=== PATIENT | male | born 1980 | race American Indian/Alaskan Native ===

== ENCOUNTER 2016-05-01 18:19 | Emergency (ER) | payer OTHER ==
[2016-05-01 18:37] VITALS: BP 149/89
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
== END 2016-05-01 21:24 | disposition home or self-care (01) ==
LOC: ED 18:19
DX: M54.2 Cervicalgia (principal); R51 Headache; I82.409 Acute embolism and thrombosis of unspecified deep veins of unspecified lower extremity; V89.2XXA Person injured in unspecified motor-vehicle accident, traffic, initial encounter; Y93.9 Activity, unspecified; Y99.9 Unspecified external cause status; Y92.410 Unspecified street and highway as the place of occurrence of the external cause
CPT/HCPCS: 99282

== ENCOUNTER 2016-11-13 06:40 | Day surgery (SDC) | payer OTHER ==
[~2016-11-13 06:40] MED LIST: ANCEF/STERILE WATER 2 GM/20 ML 2 GM/20 ML SYRINGE IV NR; NACL 0.9% 1000 ML 1,000 ML IV SCH
[2016-11-13 07:27] LABS: Basophils % (Auto) 1.2 % (0.0-1.8); Eosinophils % (Auto) 1.8 % (0.0-4.3); Hematocrit 41.3 % (35.5-45.6); Hemoglobin 13.5 gm/dl (11.8-15.2); Mean Corpuscular HGB Conc 33 % (32-34); Mean Corpuscular Hemoglobin 28 pg (28-32); Mean Corpuscular Volume 86 fl (84-94); Platelet Count 275 K/mm3 (140-440); Red Blood Count 4.79 M/mm3 (3.65-5.03); Red Cell Distribution Width 14.3 % (13.2-15.2); White Blood Count 6.1 K/mm3 (4.5-11.0)
[2016-11-13 07:36] LABS: Anion Gap 17 mmol/L; Blood Urea Nitrogen 12 mg/dL (9-20); Calcium 8.7 mg/dL (8.4-10.2); Carbon Dioxide 24 mmol/L (22-30); Chloride 102.6 mmol/L (98-107); Glucose 95 mg/dL (75-100); Potassium 4.2 mmol/L (3.6-5.0); Sodium 139 mmol/L (137-145)
[2016-11-13 07:37] LABS: INR 0.94 (0.87-1.13)
[2016-11-13 07:38] LABS: Partial Thromboplastin Time 27.7 Sec. (24.2-36.6)
[2016-11-13] MEDS ORDERED: HEPARIN/NS 5000 UNIT/500ML(CATH LAB) 500 ML IR ONE ×2 (08:16→08:40)
[2016-11-13] MEDS ORDERED: SUBLIMAZE ONE (08:16)
[2016-11-13] MEDS ORDERED: HEPARIN 10,000 UNITS/10 ML ONE (08:16)
[2016-11-13] MEDS ORDERED: ANCEF/STERILE WATER 2 GM/20 ML 2 GM/20 ML SYRINGE IV ONE (08:17)
[2016-11-13] MEDS: VERSED ONE ×2 (08:28→08:37)
[2016-11-13] MEDS: XYLOCAINE 2% INFILTRATI ONE ×2 (08:28→08:36)
[2016-11-13] MEDS: SUBLIMAZE ONE ×3 (08:28→10:15)
--- NOTE | 2016-11-13 10:25 | Short Stay Summary ---
Short Stay Documentation Date of service: 11/13/16 - History Principal diagnosis: Venous insufficiency H&P: obtained from office - Allergies and Medications Current Medications: Allergies No Known Allergies Allergy (Verified 05/01/16 18:39) Home Medications Medication Instructions Recorded Confirmed Last Taken Type Naproxen [Naprosyn] 500 mg PO BID 11/13/16 11/13/16 11/12/16 History Active Medications Cefazolin Sodium (Ancef/Sterile Water 2 Gm/20 Ml) 2 gm in 20 mls @ 80 mls/hr IV PREOP NR PRN Reason: Protocol Stop: 11/13/16 23:59 Sodium Chloride (Nacl 0.9% 1000 Ml) 1,000 mls @ 42 mls/hr IV DIRECT JC - Brief post op/procedure progress note Date of procedure: 11/13/16 Pre-op diagnosis: Venous insufficiency Post-op diagnosis: same Procedure: BLE venogram Anesthesia: local Surgeon: KATHI RICARDO Estimated blood loss: minimal Pathology: none Condition: stable - Disposition Condition at discharge: Good Disposition: DC-01 TO HOME OR SELFCARE Short Stay Discharge Plan Activity: advance as tolerated Weight Bearing Status: Weight Bear as Tolerated Diet: regular Wound: keep clean and dry, per your surgeon's advice Follow up with: CHARLOTTE OG MD [Primary Care Provider] - 7 Days
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
[2016-11-13] MEDS ORDERED: NORCO 5/325 ONE (12:04)
[2016-11-13] MEDS ORDERED: NORCO 5/325 PO PRN (12:08)
[2016-11-13 13:50] VITALS: BP 116/67
--- NOTE | 2016-11-14 11:16 | Vascular Lab Report ---
MISCELLANEOUS VESSEL IDENTIFICATION: COMMENTS ON THE SCAN: The right femoral vein was identified and under real-time ultrasound guidance was cannulated. IMPRESSION: Successful ultrasound guided vein cannulation.
--- NOTE | 2016-11-14 11:17 | Vascular Lab Report ---
MISCELLANEOUS VESSEL IDENTIFICATION: COMMENTS ON THE SCAN: The left femoral vein was identified and under real-time ultrasound guidance was cannulated. IMPRESSION: Successful ultrasound guided vein cannulation.
== END 2016-11-13 13:20 | disposition home or self-care (01) ==
LOC: CATHLABREC 06:40
PROVIDERS: ATTEND Radiology Diagnostic Radiology
DX: I87.1 Compression of vein (principal); I87.2 Venous insufficiency (chronic) (peripheral); I87.319 Chronic venous hypertension (idiopathic) with ulcer of unspecified lower extremity; Z86.718 Personal history of other venous thrombosis and embolism; Z72.89 Other problems related to lifestyle; Z98.890 Other specified postprocedural states
CPT/HCPCS: 36005; 36010; 36415; 75822; 76937; 80048; 85025; 85610; 85730; C1725; C1751; C1769; J0690; J1644; J2250; J3010; J7030; Q9967

== ENCOUNTER 2017-03-15 07:51 | Inpatient (IN) | payer OTHER ==
[~2017-03-15 07:51] MED LIST changes: +HEPARIN 10,000 UNITS/10 ML ONE; +MARCAINE 0.25% INFILTRATI ONE; +MARCAINE 0.5% 30 ML INFILTRATI ONE; +NACL 0.9% 1000 ML 1,000 ML ONE; +NACL 0.9% 250ML 250 ML ONE; +NACL 0.9% 500 ML 500 ML ONE; +PEPCID PO NR; +PROTAMINE SULFATE ONE; +RIFADIN ONE; +SODIUM BICARBONATE ONE; +VERSED IV NR
[2017-03-15 09:03] LABS: Basophils % (Auto) 0.5 % (0.0-1.8); Hemoglobin 13.8 gm/dl (11.8-15.2); Mean Corpuscular HGB Conc 33 % (32-34); Mean Corpuscular Hemoglobin 29 pg (28-32); Mean Corpuscular Volume 88 fl (84-94); Platelet Count 269 K/mm3 (140-440); Red Blood Count 4.77 M/mm3 (3.65-5.03); Red Cell Distribution Width 14.2 % (13.2-15.2); White Blood Count 4.6 K/mm3 (4.5-11.0)
[2017-03-15 09:13] LABS: INR 0.96 (0.87-1.13); Partial Thromboplastin Time 26.9 Sec. (24.2-36.6)
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
--- NOTE | 2017-03-15 09:15 | Anesthesia Day of Surgery ---
Anesthesia Day of Surgery - Day of Surgery Patient Examined: Yes Patient H&P Reviewed: Yes Patient is NPO: Yes
[2017-03-15 09:28] LABS: Anion Gap 18 mmol/L; BUN/Creatinine Ratio 9; Blood Urea Nitrogen 9 mg/dL (9-20); Calcium 9.1 mg/dL (8.4-10.2); Carbon Dioxide 25 mmol/L (22-30); Chloride 101.5 mmol/L (98-107); Glucose 99 mg/dL (75-100); Potassium 4.2 mmol/L (3.6-5.0); Sodium 140 mmol/L (137-145)
[2017-03-15] MEDS ORDERED: DIPRIVAN 10 MG/ML IV ONE (09:55)
[2017-03-15] MEDS ORDERED: XYLOCAINE MPF 2% ONE (09:55)
[2017-03-15] MEDS ORDERED: SUBLIMAZE ONE (09:55)
[2017-03-15] MEDS ORDERED: NACL 0.9% 500 ML IRRIGATION ONE (10:39)
[2017-03-15] MEDS ORDERED: HEPARIN 10,000 UNITS/10 ML IV ONE (10:39)
[2017-03-15] MEDS ORDERED: PAPAVERINE IV ONE (10:39)
[2017-03-15] MEDS ORDERED: NACL 0.9% 500 ML IV ONE (10:39)
[2017-03-15] MEDS ORDERED: NACL 0.9% IR ONE (10:39)
[2017-03-15] MEDS ORDERED: MARCAINE 0.5% INFILTRATI ONE (10:39)
[2017-03-15] MEDS ORDERED: DECADRON ONE (11:04)
[2017-03-15] MEDS ORDERED: ZEMURON IV ONE (11:09)
[2017-03-15] MEDS ORDERED: XYLOCAINE 1% 20 mL ONE (11:21)
[2017-03-15] MEDS ORDERED: MARCAINE 0.5% 30 ML INFILTRATI ONE (11:21)
[2017-03-15] MEDS ORDERED: HEPARIN 10,000 UNITS/10 ML ONE ×2 (11:21→12:20)
[2017-03-15] MEDS ORDERED: PERCOCET 5/325 PO PRN (12:00)
[2017-03-15] MEDS ORDERED: ZOFRAN IV PRN (12:00)
[2017-03-15] MEDS ORDERED: MORPHINE IV PRN (12:00)
[2017-03-15] MEDS ORDERED: LACTATED RINGERS 1,000 ML ONE ×2 (12:21→15:29)
[2017-03-15] MEDS ORDERED: ZOFRAN ONE (14:00)
[2017-03-15] MEDS ORDERED: DILAUDID ONE (14:02)
[2017-03-15] MEDS ORDERED: ROBINUL ONE (14:03)
[2017-03-15] MEDS ORDERED: NEOSTIGMINE ONE (14:03)
[2017-03-15] MEDS ORDERED: TYLENOL PO PRN (14:36)
[2017-03-15] MEDS ORDERED: DULCOLAX PR PRN (14:36)
[2017-03-15] MEDS ORDERED: MILK OF MAGNESIA PO PRN (14:36)
[2017-03-15] MEDS ORDERED: DILAUDID IV PRN (14:42)
[2017-03-15] MEDS: ELIQUIS PO SCH ×2 (15:09→23:10)
--- NOTE | 2017-03-15 15:48 | Post Operative Note ---
Date of procedure: 03/15/17 Pre-op diagnosis: History Of Occluded Left Iliac Vein W/ Venous HTN Post-op diagnosis: same Findings: Significant venous hypertension left femoral vein. Procedure: 1. Left Femoral Vein to Right Femoral Vein Bypass with 8 mm Ringed Propaten Graft 2. Creation of Left SFA to Left Femoral Vein AVG with 4-7 Propaten Step Graft ( Lundberg Procedure) Anesthesia: GETA Surgeon: ROSIE ORTIZ Dietitian Therapeutic: SUKHI ALFORD Estimated blood loss: other (150 ml) Pathology: none Condition: stable Disposition: PACU
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
--- NOTE | 2017-03-15 16:06 | Post Anesthesia Evaluation ---
- Post Anesthesia Evaluation Patient Participated: Yes Airway Patent: Yes Stable Respiratory Function: Yes Nausea/Vomiting: No Temp > 96.8F: Yes Pain Manageable: Yes Adequeate Hydration: Yes Anesthesia Complications: No
[2017-03-15] MEDS: ZOFRAN IV PRN (18:54)
[2017-03-15] MEDS ORDERED: ceFAZolin 2 GM in NACL 0.9% 100 ML IV SCH (22:00)
[2017-03-15] MEDS: MORPHINE IV PRN (22:13)
[2017-03-15] MEDS: ANCEF/STERILE WATER 2 GM/20 ML 2 GM/20 ML SYRINGE IV SCH (22:14)
[2017-03-16] MEDS: NACL 0.9% 1000 ML 1,000 ML IV SCH ×2 (00:41→10:58)
[2017-03-16] MEDS: ANCEF/STERILE WATER 2 GM/20 ML 2 GM/20 ML SYRINGE IV SCH (06:18)
[2017-03-16] MEDS: MORPHINE IV PRN (06:25)
[2017-03-16] MEDS: ZOFRAN IV PRN (06:25)
[2017-03-16] MEDS ORDERED: LOVENOX SUB-Q SCH (10:00)
[2017-03-16] MEDS: ELIQUIS PO SCH ×2 (10:56→22:24)
[2017-03-16] MEDS: NORCO 7.5/325 PO PRN ×2 (14:14→21:10)
--- NOTE | 2017-03-16 18:05 | Progress Note ---
Assessment and Plan Pt doing well, post-op. He continued using intravenous analgesics earlier today. Encouraged the pt to convert to oral analgesics. Spoke to the nursing staff. Okay to get up OOB, and ambulate with assistance. Will re-eval in am, if doing well, then likely to go home. D/c instructions given at the bedside to the pt and his . - Patient Problems (1) Venous hypertension of left lower extremity Current Visit: Yes Status: Acute Subjective Date of service: 03/16/17 Interval history: Pt awake and alert. C/o mild to mod incisional discomfort. C/o back pain from extended bedrest, improved since OOB. Has not ambulated thus far. Objective - Constitutional Vitals: Vital Signs - 12hr 03/16/17 03/16/17 03/16/17 07:35 10:23 12:48 Temperature 98.5 F 98.5 F Pulse Rate 68 77 Respiratory 18 18 Rate Blood Pressure 112/58 113/55 O2 Sat by Pulse 96 98 95 Oximetry 03/16/17 16:33 Temperature 98.2 F Pulse Rate 78 Respiratory 20 Rate Blood Pressure 113/54 O2 Sat by Pulse 97 Oximetry General appearance: Present: no acute distress - EENT Eyes: EOM intact ENT: hearing intact - Neck Neck: supple - Respiratory Respiratory effort: normal Extremities: no ischemia, normal temperature Extremity abnormal: edema (continued swelling to the LLE, but improved slightly since surgery) - Neurologic Neurologic: no focal deficits - Psychiatric Psychiatric: appropriate mood/affect, intact judgment & insight, cooperative - Labs CBC & Chem 7: 03/15/17 08:25 03/15/17 08:25
[2017-03-17] MEDS: NORCO 7.5/325 PO PRN ×2 (04:54→09:51)
[2017-03-17] MEDS: ELIQUIS PO SCH (09:49)
--- NOTE | 2017-03-17 12:32 | Discharge Summary ---
Providers - Providers Date of Admission: 03/15/17 07:51 Date of discharge: 03/17/17 Attending physician: ROSIE ORTIZ Hospitalization Reason for admission: Venous Hypertension Condition: Stable Procedures: Patient Name: MADAI BOOGIE Date of : 76 Patient Status: Inpatient Attending Provider: ROSIE ORTIZ Date: 03/15/17 15:44 Initialization Date: 03/15/17 15:44 Date of procedure: 03/15/17 Pre-op diagnosis: History Of Occluded Left Iliac Vein W/ Venous HTN Post-op diagnosis: same Findings: Significant venous hypertension left femoral vein. Procedure: 1. Left Femoral Vein to Right Femoral Vein Bypass with 8 mm Ringed Propaten Graft 2. Creation of Left SFA to Left Femoral Vein AVG with 4-7 Propaten Step Graft ( Lundberg Procedure) Anesthesia: RONI Surgeon: ROSIE ORTIZ Land Surveyor Assistant: SUKHI ALFORD Estimated blood loss: other (150 ml) Pathology: none Condition: stable Disposition: PACU Hospital course: This patient was admitted in preparation for the above-stated procedure which was performed without complication. Postoperatively he was transferred to the recovery room and subsequently to the medical floor. His activity levels were increased and tolerated. By postoperative day 2 his pain was adequately managed with oral analgesics, and he appears stable for discharge. Disposition: TO HOME OR SELFCARE - Discharge Diagnoses (1) Venous hypertension of left lower extremity Status: Acute Core Measure Documentation - Palliative Care Palliative Care/ Comfort Measures: Not Applicable - Core Measures Any of the following diagnoses?: history only Exam - Constitutional Vitals: Temp Pulse Resp BP Pulse Ox 98.5 F 91 H 18 132/76 95 03/17/17 07:44 03/17/17 07:44 03/17/17 07:44 03/17/17 07:44 03/17/17 07:44 General appearance: Present: no acute distress - EENT Eyes: Present: EOM intact ENT: hearing intact - Neck Neck: Present: supple - Respiratory Respiratory effort: normal - Extremities Extremities: no ischemia Extremity abnormal: edema (of the left lower extremity when compared to the right), other (his bilateral groin incisions are intact, minimal reactive erythema, no drainage appreciated) - Psychiatric Psychiatric: appropriate mood/affect, intact judgment & insight, cooperative - Neurologic Neurologic: no focal deficits Plan Activity: advance as tolerated Weight Bearing Status: Weight Bear as Tolerated Diet: regular Wound: keep clean and dry Follow up with: ROSIE ORTIZ MD [Staff Physician] - 14 Days Prescriptions: Apixaban [Eliquis] 5 mg PO Q12HR #60 tablet HYDROcodone/APAP 7.5-325 [[place] Pos 7.5/325] 1 each PO Q6HR PRN #50 tablet PRN Reason: Pain
[2017-03-17 13:00] VITALS: BP 129/77
== END 2017-03-17 15:34 | disposition home or self-care (01) | DRG 254 ==
LOC: 3A 07:51 → 3B-SURG 14:52
PROVIDERS: ADMIT Surgery Vascular Surgery; ATTEND Surgery Vascular Surgery
PROC: 061N0JY Bypass Left Femoral Vein to Lower Vein with Synthetic Substitute, Open Approach (ICD-10-PCS; principal; 2017-03-15)
PROC: 041L0JS Bypass Left Femoral Artery to Lower Extremity Vein with Synthetic Substitute, Open Approach (ICD-10-PCS; 2017-03-15)
DX: I82.422 Acute embolism and thrombosis of left iliac vein (principal); I87.302 Chronic venous hypertension (idiopathic) without complications of left lower extremity
CPT/HCPCS: 36415; 80048; 82962; 85025; 85610; 85730; 86850; 86900; 86901; C1768; J0690; J1100; J1170; J1644; J2250; J2270; J2405; J2440; J2704; J2710; J2720; J3010; J3490; J7030; J7040; J7050; J7120

== ENCOUNTER 2017-08-05 06:17 | Day surgery (SDC) | payer OTHER ==
[~2017-08-05 06:17] MED LIST changes: -HEPARIN 10,000 UNITS/10 ML ONE; -MARCAINE 0.25% INFILTRATI ONE; -MARCAINE 0.5% 30 ML INFILTRATI ONE; -NACL 0.9% 1000 ML 1,000 ML ONE; -NACL 0.9% 250ML 250 ML ONE; -NACL 0.9% 500 ML 500 ML ONE; -PEPCID PO NR; -PROTAMINE SULFATE ONE; -RIFADIN ONE; -SODIUM BICARBONATE ONE; -VERSED IV NR
[2017-08-05 07:33] LABS: Basophils # (Auto) 0.1 K/mm3 (0.0-0.1); Basophils % (Auto) 1.3 % (0.0-1.8); Eosinophils # (Auto) 0.1 K/mm3 (0.0-0.4); Eosinophils % (Auto) 1.4 % (0.0-4.3); Hematocrit 39.8 % (35.5-45.6); Hemoglobin 13.4 gm/dl (11.8-15.2); Lymphocytes # (Auto) 1.3 K/mm3 (1.2-5.4); Lymphocytes % (Auto) 27.3 % (13.4-35.0); Mean Corpuscular HGB Conc 34 % (32-34); Mean Corpuscular Hemoglobin 29 pg (28-32); Mean Corpuscular Volume 85 fl (84-94); Monocytes # (Auto) 0.4 K/mm3 (0.0-0.8); Monocytes % (Auto) 8.8 % (0.0-7.3); Platelet Count 250 K/mm3 (140-440); Red Blood Count 4.69 M/mm3 (3.65-5.03); Red Cell Distribution Width 14.7 % (13.2-15.2)
[2017-08-05 07:45] LABS: INR 0.96 (0.87-1.13)
[2017-08-05 07:51] LABS: BUN/Creatinine Ratio 13; Blood Urea Nitrogen 10 mg/dL (9-20); Calcium 8.7 mg/dL (8.4-10.2); Hemolysis Index 5
[2017-08-05] MEDS ORDERED: HEPARIN/NS 5000 UNIT/500ML(CATH LAB) 1,000 ML IR ONE (08:27)
[2017-08-05] MEDS ORDERED: NACL 0.9% 500 ML 500 ML ONE (08:28)
[2017-08-05] MEDS ORDERED: ANCEF/STERILE WATER 2 GM/20 ML 2 GM/20 ML SYRINGE IV ONE (08:28)
[2017-08-05] MEDS: VERSED IV ONE ×4 (09:16→11:19)
[2017-08-05] MEDS: XYLOCAINE 2% INFILTRATI ONE ×3 (09:23→10:28)
[2017-08-05] MEDS: SUBLIMAZE ONE ×4 (09:23→11:19)
[2017-08-05] MEDS: HEPARIN 10,000 UNITS/10 ML ONE ×3 (09:55→11:00)
[2017-08-05] MEDS ORDERED: ELIQUIS ONE (11:33)
[2017-08-05] MEDS ORDERED: ALUM-MAG HYDROX-SIMETH 200-200-20MG/5ML ONE (11:34)
[2017-08-05] MEDS ORDERED: HEPARIN 10,000 UNITS/10 ML ONE (11:49)
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
[2017-08-05] MEDS ORDERED: NORCO 5/325 ONE (13:48)
[2017-08-05] MEDS ORDERED: NORCO 5/325 PO ONE (13:52)
[2017-08-05 15:29] VITALS: BP 138/85
== END 2017-08-05 15:50 | disposition home or self-care (01) ==
LOC: CATHLABREC 06:17
PROVIDERS: ATTEND Radiology Diagnostic Radiology
DX: I74.5 Embolism and thrombosis of iliac artery (principal); I87.312 Chronic venous hypertension (idiopathic) with ulcer of left lower extremity; I87.1 Compression of vein; Z79.01 Long term (current) use of anticoagulants; Z91.048 Other nonmedicinal substance allergy status
CPT/HCPCS: 36415; 37187; 37238; 37239; 37252; 37253; 75822; 76937; 80048; 85025; 85610; 85730; 99156; 99157; C1725; C1753; C1757; C1769; C1876; C1887; C1894; J0690; J1644; J2250; J3010; J7040; Q9967

== ENCOUNTER 2017-08-19 10:17 | Inpatient (IN) | payer OTHER ==
[~2017-08-19 10:17] MED LIST changes: -NACL 0.9% 1000 ML 1,000 ML IV SCH
[2017-08-19] MEDS: NACL 0.9% 1000 ML 1,000 ML IV SCH (11:00)
[2017-08-19 11:58] LABS: Basophils # (Auto) 0.1 K/mm3 (0.0-0.1); Basophils % (Auto) 1.9 % (0.0-1.8); Eosinophils # (Auto) 0.2 K/mm3 (0.0-0.4); Eosinophils % (Auto) 2.8 % (0.0-4.3); Hematocrit 38.2 % (35.5-45.6); Hemoglobin 12.9 gm/dl (11.8-15.2); Lymphocytes # (Auto) 1.3 K/mm3 (1.2-5.4); Lymphocytes % (Auto) 23.3 % (13.4-35.0); Mean Corpuscular HGB Conc 34 % (32-34); Mean Corpuscular Hemoglobin 29 pg (28-32); Mean Corpuscular Volume 85 fl (84-94); Monocytes # (Auto) 0.5 K/mm3 (0.0-0.8); Platelet Count 333 K/mm3 (140-440); Red Blood Count 4.51 M/mm3 (3.65-5.03); Red Cell Distribution Width 14.3 % (13.2-15.2)
[2017-08-19 12:06] LABS: BUN/Creatinine Ratio 13; Blood Urea Nitrogen 10 mg/dL (9-20); Calcium 8.9 mg/dL (8.4-10.2); Hemolysis Index 12
[2017-08-19 12:07] LABS: INR 0.91 (0.87-1.13); Partial Thromboplastin Time 28.2 Sec. (24.2-36.6)
[2017-08-19] MEDS ORDERED: SUBLIMAZE ONE ×2 (13:41)
[2017-08-19] MEDS ORDERED: XYLOCAINE 2% INFILTRATI ONE ×2 (13:41)
[2017-08-19] MEDS ORDERED: HEPARIN/NS 5000 UNIT/500ML(CATH LAB) 500 ML IR ONE (13:41)
[2017-08-19] MEDS ORDERED: VERSED ONE ×2 (13:41)
[2017-08-19] MEDS ORDERED: ANCEF/STERILE WATER 2 GM/20 ML 2 GM/20 ML SYRINGE IV ONE ×2 (13:41)
[2017-08-19] MEDS ORDERED: HEPARIN/NS 5000 UNIT/500ML(CATH LAB) 1,000 ML IR ONE (13:41)
[2017-08-19] MEDS ORDERED: HEPARIN 10,000 UNITS/10 ML ONE ×2 (13:41)
[2017-08-19] MEDS ORDERED: HEPARIN 10,000 UNITS/10 ML 10,000 UNIT in NACL 0.9% 1000 ML 1,000 ML IR ONE (14:00)
[2017-08-19] MEDS ORDERED: SUBLIMAZE IV ONE ×2 (14:01→14:09)
[2017-08-19] MEDS ORDERED: VERSED IV ONE ×2 (14:01→14:09)
[2017-08-19] MEDS ORDERED: XYLOCAINE MPF 2% INFILTRATI ONE ×2 (14:01→14:16)
[2017-08-19] MEDS ORDERED: NORCO 5/325 PO PRN (14:10)
[2017-08-19] MEDS ORDERED: NACL 0.9% 1000 ML 1,000 ML ONE ×2 (14:11)
[2017-08-19] MEDS ORDERED: HEPARIN/ 0.45% NACL-25,000 UNIT/500 ML 25,000 UNIT/500 ML BAG ONE ×2 (14:11)
[2017-08-19] MEDS ORDERED: WATER FOR INJ (PF) 10 ML ONE ×2 (14:12)
[2017-08-19] MEDS ORDERED: CATHFLO ONE ×2 (14:12)
[2017-08-19] MEDS ORDERED: HEPARIN 10,000 UNITS/10 ML IV ONE ×3 (14:37→14:41)
[2017-08-19] MEDS ORDERED: CATHFLO IV ONE ×2 (14:39→14:40)
[2017-08-19] MEDS ORDERED: NACL 0.9% 1000 ML 1,000 ML SHEATH SCH (15:00)
[2017-08-19] MEDS ORDERED: NACL 0.9% 1000 ML 1,000 ML IV SCH (15:00)
[2017-08-19] MEDS ORDERED: NACL 0.9% 1000 ML 1,000 ML EKOSCLUMEN SCH (15:00)
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
[2017-08-19] MEDS: HEPARIN/ 0.45% NACL-25,000 UNIT/500 ML 25,000 UNIT/500 ML BAG SHEATH SCH (15:20)
[2017-08-19] MEDS: CATHFLO 20 MG in NACL 0.9% 500 ML 500 ML EKOSDLUMEN SCH (15:20)
--- NOTE | 2017-08-19 15:21 | Operative Report ---
Operative Report Operative Report: EXAM: 1. Ultrasound-guided access of the right internal jugular vein. 2. Selection of the right common femoral vein with and Ogren review of the right lower extremity. 3. Selection of the IVC with venography of the IVC 4. Selection of the left profunda femoral vein with venography of the left lower extremity 5. Fluoroscopic-guided placement of a 106 cm x 40 cm EKOS thrombolytic catheter across the IVC, left common iliac vein, external iliac vein, and common femoral vein DATE: 08/19/17 OPTICAL MECHANIC: KATHI DIAS MD INDICATION: Acute left lower extremity iliofemoral acute deep venous thrombosis on recent venous reconstruction MEDICATIONS: Please see nursing report for full details. DEVICES: 106 cm x 40 cm EKOS thrombolytic catheter CONTRAST: Please see minilab operator report for details PROCEDURE: The risks, benefits, and alternatives were discussed with the patient; written informed consent was obtained. The right neck was prepped and draped in sterile fashion. The right internal jugular vein was patent with ultrasound evaluation. Under direct ultrasound guidance, the right internal jugular vein was accessed with a 21-gauge micropuncture needle. 0.018 inch wire was passed into the IVC. Needle was exchanged for transitional dilator. Wire was exchanged for 0.035 inch wire. Transitional dilator was exchanged for 6 [place]an 23 cm sheath. Angled catheter was then used to select right common femoral vein. Digital subtraction angiography was performed demonstrating patency of the right common femoral vein, right external iliac vein, and right common iliac vein. A IVC was selected and digital subtraction angiography demonstrated patency of the IVC. The left iliac stents were selected and catheter was advanced into the left common femoral vein. Angiography was performed demonstrating occlusion of the left common femoral vein, external iliac vein stent, and common iliac vein stent. The left profunda femoral vein was selected and digital subtraction angiography demonstrated patency of the left profunda femoral vein. The patient was heparinized. Thrombolytic catheterization advanced over the wire and passed into the profunda femoral vein with the thrombolytic treatment zone across the stented segment and the common femoral vein. Thrombolytic catheter wire was inserted through the catheter. 4 mg of tPA was used to prime the catheter. 1500 units of heparin were used to prime the sheath. The catheter was secured with 3-0 Ethilon and Steri-Strips. Catheter was then secured and the patient was sent to the ICU in stable condition. FINDINGS: Please see procedure note above IMPRESSION: 1. Successful placement of a thrombolytic catheter across the occluded left iliac vein stents and across the left common femoral vein.
[2017-08-19] MEDS ORDERED: DILAUDID ONE (15:52)
[2017-08-19] MEDS: DILAUDID IV PRN ×2 (15:56→22:15)
[2017-08-19] MEDS ORDERED: NORCO 5/325 ONE (17:37)
[2017-08-19 21:49] LABS: Basophils # (Auto) 0.1 K/mm3 (0.0-0.1); Basophils % (Auto) 1.7 % (0.0-1.8); Eosinophils # (Auto) 0.2 K/mm3 (0.0-0.4); Eosinophils % (Auto) 2.7 % (0.0-4.3); Hematocrit 38.7 % (35.5-45.6); Hemoglobin 12.8 gm/dl (11.8-15.2); Lymphocytes # (Auto) 1.9 K/mm3 (1.2-5.4); Lymphocytes % (Auto) 25.1 % (13.4-35.0); Mean Corpuscular HGB Conc 33 % (32-34); Mean Corpuscular Hemoglobin 28 pg (28-32); Mean Corpuscular Volume 85 fl (84-94); Monocytes # (Auto) 0.6 K/mm3 (0.0-0.8); Monocytes % (Auto) 7.8 % (0.0-7.3); Platelet Count 264 K/mm3 (140-440); Red Blood Count 4.55 M/mm3 (3.65-5.03); Red Cell Distribution Width 13.9 % (13.2-15.2)
[2017-08-19 22:01] LABS: Heparin anti-factor XA < 0.10 U.I./ml (0.3-0.7)
[2017-08-19 22:04] LABS: Fibrinogen 141 mg/dl (211-480)
[2017-08-20 02:06] LABS: Basophils # (Auto) 0.1 K/mm3 (0.0-0.1); Eosinophils # (Auto) 0.1 K/mm3 (0.0-0.4); Eosinophils % (Auto) 1.4 % (0.0-4.3); Hematocrit 40.2 % (35.5-45.6); Hemoglobin 13.4 gm/dl (11.8-15.2); Lymphocytes # (Auto) 1.2 K/mm3 (1.2-5.4); Lymphocytes % (Auto) 15.2 % (13.4-35.0); Mean Corpuscular HGB Conc 33 % (32-34); Mean Corpuscular Hemoglobin 29 pg (28-32); Mean Corpuscular Volume 85 fl (84-94); Monocytes # (Auto) 0.5 K/mm3 (0.0-0.8); Monocytes % (Auto) 6.6 % (0.0-7.3); Platelet Count 253 K/mm3 (140-440); Red Blood Count 4.72 M/mm3 (3.65-5.03); Red Cell Distribution Width 14.1 % (13.2-15.2)
[2017-08-20 02:48] LABS: Heparin anti-factor XA < 0.10 U.I./ml (0.3-0.7)
[2017-08-20 02:53] LABS: Fibrinogen 76 mg/dl (211-480)
[2017-08-20] MEDS: NACL 0.9% 1000 ML 1,000 ML IV SCH ×3 (03:35→16:36)
[2017-08-20] MEDS: CATHFLO 20 MG in NACL 0.9% 500 ML 500 ML EKOSDLUMEN SCH (04:30)
[2017-08-20] MEDS: HEPARIN/ 0.45% NACL-25,000 UNIT/500 ML 25,000 UNIT/500 ML BAG SHEATH SCH (04:31)
[2017-08-20 05:30] LABS: BUN/Creatinine Ratio 13; Blood Urea Nitrogen 10 mg/dL (9-20); Calcium 8.2 mg/dL (8.4-10.2); Hemolysis Index 4
[2017-08-20] MEDS ORDERED: HEPARIN/NS 5000 UNIT/500ML(CATH LAB) 500 ML IR ONE ×2 (08:08→08:13)
[2017-08-20] MEDS ORDERED: ANCEF/STERILE WATER 2 GM/20 ML 2 GM/20 ML SYRINGE IV ONE (08:10)
[2017-08-20] MEDS ORDERED: NACL 0.9% 500 ML 0 ML ONE (08:10)
[2017-08-20] MEDS ORDERED: XYLOCAINE 2% INFILTRATI ONE (08:12)
[2017-08-20 08:27] LABS: Basophils % (Auto) 0.7 % (0.0-1.8); Eosinophils # (Auto) 0.1 K/mm3 (0.0-0.4); Eosinophils % (Auto) 2.3 % (0.0-4.3); Hemoglobin 13.2 gm/dl (11.8-15.2); Lymphocytes # (Auto) 1.2 K/mm3 (1.2-5.4); Lymphocytes % (Auto) 19.6 % (13.4-35.0); Mean Corpuscular HGB Conc 32 % (32-34); Mean Corpuscular Hemoglobin 28 pg (28-32); Mean Corpuscular Volume 86 fl (84-94); Monocytes # (Auto) 0.4 K/mm3 (0.0-0.8); Monocytes % (Auto) 7.4 % (0.0-7.3); Platelet Count 261 K/mm3 (140-440); Red Blood Count 4.75 M/mm3 (3.65-5.03); Red Cell Distribution Width 14.2 % (13.2-15.2)
[2017-08-20] MEDS: HEPARIN 10,000 UNITS/10 ML ONE ×3 (08:42→10:39)
[2017-08-20 08:47] LABS: Heparin anti-factor XA 0.1 U.I./ml (0.3-0.7)
[2017-08-20] MEDS: VERSED ONE ×4 (08:56→10:16)
[2017-08-20] MEDS: SUBLIMAZE ONE ×5 (08:57→11:42)
[2017-08-20] MEDS ORDERED: HEPARIN/NS 5000 UNIT/500ML(CATH LAB) 0 ML IR ONE (09:16)
[2017-08-20] MEDS ORDERED: HEPARIN/NS 5000 UNIT/500ML(CATH LAB) 1,000 ML IR ONE (09:29)
[2017-08-20] MEDS ORDERED: VERSED ONE (09:36)
[2017-08-20] MEDS ORDERED: NACL 0.9% 500 ML 500 ML ONE (09:51)
[2017-08-20] MEDS ORDERED: ATROPINE 0.1% (CARDIAC) ONE (09:56)
--- NOTE | 2017-08-20 10:11 | Consultation ---
History of Present Illness - Reason for Consult Consult date: 08/20/17 EKOS post op management Requesting physician: KATHI DIAS - History of Present Illness 36 y/o with DVT, needing EKOS therapy Medications and Allergies Allergies Allergy/AdvReac Type Severity Reaction Status Date / Time tobacco AdvReac Nausea Uncoded 08/05/17 07:01 Home Medications Medication Instructions Recorded Confirmed Last Taken Type Apixaban [Eliquis] 5 mg PO Q12HR #60 tablet 03/17/17 08/19/17 08/17/17 Rx HYDROcodone/APAP 5-325 [[place] 1 cap PO Q6HR PRN #25 tablet 08/05/17 08/19/17 Unknown Rx 5/325] traMADol [Ultram] 50 mg PO TID PRN 08/19/17 08/19/17 08/17/17 History Active Meds: Active Medications Acetaminophen/Hydrocodone Bitart ([place] 5/325) 2 each PO Q6H PRN PRN Reason: Pain, Moderate (4-6) Last Admin: 08/19/17 17:39 Dose: 2 each Hydromorphone HCl (Dilaudid) 0.5 mg IV Q3H PRN PRN Reason: Pain , Severe (7-10) Last Admin: 08/19/17 22:15 Dose: 0.5 mg Sodium Chloride (Nacl 0.9% 1000 Ml) 1,000 mls @ 42 mls/hr IV DIRECT JC Last Admin: 08/20/17 03:35 Dose: 42 mls/hr Alteplase, Recombinant 20 mg/ (Sodium Chloride) 500 mls @ 25 mls/hr EKOSDLUMEN DIRECT JC Last Infusion: 08/20/17 04:30 Dose: 0 mls/hr Heparin Sodium/Sodium Chloride (Heparin/ 0.45% Nacl-25,000 Unit/500 Ml) 25,000 unit in 500 mls @ 10 mls/hr SHEATH DIRECT JC; Protocol Last Admin: 08/20/17 04:31 Dose: 500 units/hr, 10 mls/hr Sodium Chloride (Nacl 0.9% 1000 Ml) 1,000 mls @ 30 mls/hr IV DIRECT JC Sodium Chloride (Nacl 0.9% 1000 Ml) 1,000 mls @ 35 mls/hr EKOSCLUMEN DIRECT JC Last Admin: 08/19/17 15:25 Dose: 35 mls/hr Sodium Chloride (Nacl 0.9% 1000 Ml) 1,000 mls @ 30 mls/hr SHEATH DIRECT JC Ondansetron HCl (Zofran) 4 mg IV Q8H PRN PRN Reason: Nausea And Vomiting Exam - Constitutional Vitals: Temp Pulse Resp BP Pulse Ox 98.2 F 62 14 130/82 97 08/20/17 08:00 08/20/17 08:10 08/20/17 08:10 08/20/17 08:10 08/20/17 08:10 Results - Labs CBC & Chem 7: 08/20/17 20:39 08/21/17 03:00 Labs: Abnormal lab results 08/19/17 08/19/17 08/19/17 Range/Units 10:57 21:20 21:20 [place] % (Auto) 8.0 H 7.8 H (0.0-7.3) % Baso % (Auto) 1.9 H (0.0-1.8) % Seg Neutrophils % (40.0-70.0) % Fibrinogen 141 L (211-480) mg/dl Heparin Anti-Xa Level < 0.10 L (0.3-0.7) U.I./ml Calcium (8.4-10.2) mg/dL 08/20/17 08/20/17 08/20/17 Range/Units 01:43 01:43 08:07 [place] % (Auto) 7.4 H (0.0-7.3) % Baso % (Auto) (0.0-1.8) % Seg Neutrophils % 75.8 H (40.0-70.0) % Fibrinogen 76 L* (211-480) mg/dl Heparin Anti-Xa Level < 0.10 L (0.3-0.7) U.I./ml Calcium (8.4-10.2) mg/dL 08/20/17 08/20/17 Range/Units 08:07 Unknown [place] % (Auto) (0.0-7.3) % Baso % (Auto) (0.0-1.8) % Seg Neutrophils % (40.0-70.0) % Fibrinogen 91 L* (211-480) mg/dl Heparin Anti-Xa Level 0.10 L (0.3-0.7) U.I./ml Calcium 8.2 L (8.4-10.2) mg/dL Assessment and Plan 36 y/o with chronic DVT s/p EKOS 1. Follow up Vascular recs 2. HOpeful transfer after catheters removed
[2017-08-20] MEDS ORDERED: ELIQUIS ONE ×2 (10:59→11:24)
--- NOTE | 2017-08-20 11:20 | Post Operative Note ---
Date of procedure: 08/20/17 Pre-op diagnosis: Left ileofemoral DVT Post-op diagnosis: same Procedure: 1. Removal of the left lower extremity venous thrombolytic catheter. 2. Selection of the left profunda femoral vein. 3. Venography of the IVC and left lower extremity. 4. 8 Fr angiojet mechanical thrombectomy of the left common iliac vein, external iliac vein, and common femoral vein 5. 7 Fr cleaner and presser mechanical thrombectomy of the left common iliac vein, external iliac vein and common femoral vein 6. 6 Fr aspiration thrombectomy of the left common iliac vein, external iliac vein, and common femoral vein 7. Angioplasty of the left common femoral vein with a 12 mm angioplasty balloon 8. Angioplasty of the left external iliac vein and common iliac vein with a 14 mm angioplasty balloon 9. Intravascular ultrasound of the left common iliac vein, external iliac vein, and common femoral vein 10. Stenting of the left common femoral vein with a 14 mm x 60 mm Protege with 12 mm angioplasty 11. 8 Fr angiojet mechanical thrombectomy of the left profunda femoral vein Anesthesia: local (w/ conscious sedation) Surgeon: KATHI DIAS Estimated blood loss: other (500 mL with aspiration thrombectomy devices and angiojet catheter) Condition: stable Disposition: ICU
--- NOTE | 2017-08-20 11:29 | Operative Report ---
Operative Report Operative Report: EXAM: 1. Removal of the left lower extremity venous thrombolytic catheter. 2. Selection of the left profunda femoral vein. 3. Venography of the IVC and left lower extremity. 4. 8 Fr angiojet mechanical thrombectomy of the left common iliac vein, external iliac vein, and common femoral vein 5. 7 Fr mud cleaner operator mechanical thrombectomy of the left common iliac vein, external iliac vein and common femoral vein 6. 6 Fr aspiration thrombectomy of the left common iliac vein, external iliac vein, and common femoral vein 7. Angioplasty of the left common femoral vein with a 12 mm angioplasty balloon 8. Angioplasty of the left external iliac vein and common iliac vein with a 14 mm angioplasty balloon 9. Intravascular ultrasound of the left common iliac vein, external iliac vein, and common femoral vein 10. Stenting of the left common femoral vein with a 14 mm x 60 mm Protege with 12 mm angioplasty 11. 8 Fr angiojet mechanical thrombectomy of the left profunda femoral vein DATE: 03/22/18 HEALTH INFORMATION ADMINISTRATOR: KATHI DIAS MD INDICATION: Left lower extremity iliofemoral deep venous thrombosis with severe symptomatology and underlying stents who presents for thrombectomy. MEDICATIONS: Please see nursing report for full details. DEVICES: 8 [place]ic AngioJet 7 Greenlandic mud cleaner operator mechanical thrombectomy device 6 [place]ic guide catheter 12 mm x 4 cm conquest angioplasty balloon (2) 14 mm atlas angioplasty balloon 14 mm x 60 mm Proteg self expanding stent CONTRAST: Please see ballistics laboratory gunsmith report for full details. PROCEDURE: The risks, benefits, and alternatives were discussed with the patient; written informed consent was obtained. The patient was brought to the [facility] and prepped and draped in a sterile fashion. The right neck was prepped and draped in a sterile fashion. Fluoroscopy was used to evaluate the position of the catheter which was unchanged from yesterday. The left profunda femoral vein was selected. Wire within the thrombolytic catheter was removed and contrast was injected demonstrating patency of the mid and lower profunda femoral vein with some mild thrombus within the upper profunda femoral vein. The left common femoral vein, external iliac vein, and common iliac vein were still occluded. Thrombolytic catheter was removed over the wire and the sheath was upsized to an 8 [place]ic 45 cm pedicle destination. Venography through the sheath demonstrated patency of the IVC. 8 [place] AngioJet was advanced over the wire and used to perform mechanical thrombectomy of the left common femoral vein, external iliac vein, and common iliac vein. This was performed multiple times until the preponderance of the thrombus was removed. Thrombus was removed from the stented segments of the left external iliac vein, and common iliac vein, but the left common femoral vein thrombus was more chronic in nature and did not resolve. 7 Green[place]ic mud cleaner operator device was then used to perform mechanical thrombectomy of the left external iliac vein, and common iliac vein. 6 [place]ic guide catheter was then advanced and used to perform aspiration thrombectomy of the residual debris within the left external iliac vein and common iliac vein. This was then repeated in the left common femoral vein. Digital subtraction angiography was performed demonstrating clearance of all thrombus from the left external iliac vein, and common iliac vein, but residual occlusive thrombus in the left common femoral vein. Aspiration thrombectomy was performed to the left common femoral vein removing some additional thrombus. 12 mm x 4 cm angioplasty balloon was then used to perform angioplasty of the left common femoral vein, and lower external iliac vein. 14 mm x 4 cm angioplasty balloon was then used to perform angioplasty of the left external iliac vein and common iliac vein. Digital subtraction angiography was repeated demonstrating clearance of all thrombus from the left external iliac vein and common iliac vein with residual thrombus in the left common femoral vein. Intravascular ultrasound was then used to evaluate the left common iliac vein, external iliac vein, and common femoral vein. The left common iliac vein and external iliac vein were widely patent. The left common femoral vein was greater than 90% narrowed despite thrombectomy and angioplasty. 14 mm x 60 mm protg self expanding stent was then deployed in the left common femoral vein with intravascular ultrasound used to indicate the site of the profunda femoral vein and the superficial femoral vein takeoff. The stent was placed above these areas. The stent was post dilated with a 12 mm x 4 cm angioplasty balloon. Digital subtraction angiography was performed demonstrating patency of the left common femoral vein, external iliac vein, and common iliac vein. There is a small amount of thrombus in the left profunda femoral vein. 8 [place]ic AngioJet was then passed into the profunda femoral vein and mechanical thrombectomy was performed. Afterwards, repeat digital subtraction angiography demonstrated minimal residual thrombus in the left profunda femoral vein. There is prompt outflow into the iliac system and I determine the intervention was complete. The patient was provided cryoprecipitate, provided 10 mg of Eliquis by mouth, SHANI hose was applied to the left leg, and the sheath was removed and pressure was held at the internal jugular vein until hemostasis was achieved. Dermabond was applied. Pressure dressing applied. Patient had difficulty voiding, and an in and out cath had to be performed demonstrated tea colored urine consistent with angiojet usage. Patient is on 300 cc/hr of NS for hemolysis associated with angiojet catheter. Patient was then transferred to the ICU in stable condition. FINDINGS: Please see procedure note above IMPRESSION: Successful christian of flow in the left common iliac vein, external iliac vein, and common femoral vein. Successful stenting of the left common femoral vein.
[2017-08-20] MEDS: ZOFRAN IV PRN ×2 (13:05→19:57)
[2017-08-20] MEDS ORDERED: ELIQUIS PO ONE (14:00)
[2017-08-20] MEDS: DILAUDID IV PRN (17:00)
[2017-08-20] MEDS ORDERED: HEPARIN IV ONE (19:36)
--- NOTE | 2017-08-20 19:38 | Event Note ---
Date: 08/20/17 Patient having emesis but vascular was not notified. On Eliquis PO but having emesis. Needs to have heparin drip until his emesis stops and then can have heparin drip discontinued.
[2017-08-20] MEDS ORDERED: HEPARIN/ 0.45% NACL-25,000 UNIT/500 ML 25,000 UNIT/500 ML BAG IV SCH (20:00)
[2017-08-20 20:59] LABS: Hematocrit 42.4 % (35.5-45.6); Hemoglobin 13.4 gm/dl (11.8-15.2)
[2017-08-20 21:06] LABS: INR 1.08 (0.87-1.13)
[2017-08-20 21:30] LABS: Partial Thromboplastin Time 224.7 Sec. (24.2-36.6)
[2017-08-20] MEDS: ELIQUIS PO SCH (21:54)
[2017-08-20] MEDS ORDERED: ELIQUIS PO SCH (22:00)
[2017-08-21 03:12] LABS: BUN/Creatinine Ratio 10; Blood Urea Nitrogen 13 mg/dL (9-20); Calcium 9.1 mg/dL (8.4-10.2); Hemolysis Index 3
--- NOTE | 2017-08-21 08:54 | Progress Note ---
Assessment and Plan 36 y/o with chronic DVT s/p EKOS 1. Should be discharged to home today. 2. If not, can be transferred at least out of ICU. Subjective Date of service: 08/21/17 Principal diagnosis: Left ileofemoral DVT Interval history: Per note from primary, patient had emesis. There was concern yesterday about Fibrinogen levels so cryo was given. last documented Fibrinogen was 204. Objective - Constitutional Vitals: Vital Signs - 12hr 08/20/17 08/20/17 08/20/17 20:50 21:00 21:10 Temperature Pulse Rate 56 L 59 L 56 L Pulse Rate [ Left Dorsalis Pedis] Respiratory 17 24 19 Rate Blood Pressure 142/83 142/83 142/83 O2 Sat by Pulse Oximetry 08/20/17 08/20/17 08/20/17 21:20 21:30 21:40 Temperature Pulse Rate 53 L 59 L 70 Pulse Rate [ Left Dorsalis Pedis] Respiratory 17 14 18 Rate Blood Pressure 142/83 142/83 142/83 O2 Sat by Pulse Oximetry 08/20/17 08/20/17 08/20/17 21:50 22:00 22:10 Temperature Pulse Rate 56 L 53 L 61 Pulse Rate [ Left Dorsalis Pedis] Respiratory 21 20 12 Rate Blood Pressure 142/83 142/83 142/83 O2 Sat by Pulse Oximetry 08/20/17 08/20/17 08/20/17 22:20 22:30 22:40 Temperature Pulse Rate 52 L 62 52 L Pulse Rate [ Left Dorsalis Pedis] Respiratory 19 20 17 Rate Blood Pressure 142/83 142/83 142/83 O2 Sat by Pulse Oximetry 08/20/17 08/20/17 08/20/17 22:50 23:00 23:06 Temperature 97.8 F Pulse Rate 54 L 56 L Pulse Rate [ Left Dorsalis Pedis] Respiratory 18 16 Rate Blood Pressure 128/60 128/60 O2 Sat by Pulse Oximetry 08/20/17 08/20/17 08/20/17 23:10 23:20 23:30 Temperature Pulse Rate 60 57 L 54 L Pulse Rate [ Left Dorsalis Pedis] Respiratory 15 16 15 Rate Blood Pressure 122/57 128/60 128/60 O2 Sat by Pulse Oximetry 08/20/17 08/20/17 08/21/17 23:40 23:50 00:00 Temperature Pulse Rate 57 L 58 L 62 Pulse Rate [ 58 L Left Dorsalis Pedis] Respiratory 15 15 16 Rate Blood Pressure 128/60 122/57 122/57 O2 Sat by Pulse Oximetry 08/21/17 08/21/17 08/21/17 00:04 00:10 00:20 Temperature Pulse Rate 62 55 L 58 L Pulse Rate [ Left Dorsalis Pedis] Respiratory 15 13 15 Rate Blood Pressure 116/58 116/58 116/58 O2 Sat by Pulse Oximetry 08/21/17 08/21/17 08/21/17 00:30 00:40 00:50 Temperature Pulse Rate 56 L 80 53 L Pulse Rate [ Left Dorsalis Pedis] Respiratory 15 16 17 Rate Blood Pressure 116/58 116/58 116/58 O2 Sat by Pulse Oximetry 08/21/17 08/21/17 08/21/17 01:00 01:10 01:20 Temperature Pulse Rate 56 L 52 L 56 L Pulse Rate [ Left Dorsalis Pedis] Respiratory 19 15 16 Rate Blood Pressure 130/66 130/66 130/66 O2 Sat by Pulse Oximetry 08/21/17 08/21/17 08/21/17 01:30 01:40 01:50 Temperature Pulse Rate 56 L 54 L 54 L Pulse Rate [ Left Dorsalis Pedis] Respiratory 14 15 16 Rate Blood Pressure 130/66 130/66 130/66 O2 Sat by Pulse 97 Oximetry 08/21/17 08/21/17 08/21/17 02:00 02:10 02:20 Temperature Pulse Rate 54 L 55 L 53 L Pulse Rate [ Left Dorsalis Pedis] Respiratory 14 20 18 Rate Blood Pressure 130/66 129/68 129/68 O2 Sat by Pulse 98 97 97 Oximetry 08/21/17 08/21/17 08/21/17 02:30 02:40 02:50 Temperature Pulse Rate 48 L 53 L 72 Pulse Rate [ Left Dorsalis Pedis] Respiratory 18 21 24 Rate Blood Pressure 129/68 129/68 129/68 O2 Sat by Pulse 95 98 86 Oximetry 08/21/17 08/21/17 08/21/17 03:00 03:10 03:20 Temperature Pulse Rate 61 50 L 67 Pulse Rate [ Left Dorsalis Pedis] Respiratory 16 15 17 Rate Blood Pressure 129/68 129/68 129/68 O2 Sat by Pulse 97 95 96 Oximetry 08/21/17 08/21/1708/21/18 03:30 03:40 03:50 Temperature 98.4 F Pulse Rate 53 L 52 L 56 L Pulse Rate [ Left Dorsalis Pedis] Respiratory 17 16 18 Rate Blood Pressure 129/68 129/68 129/68 O2 Sat by Pulse 96 95 97 Oximetry 08/21/17 08/21/17 08/21/17 04:00 04:10 04:20 Temperature Pulse Rate 60 54 L 57 L Pulse Rate [ 54 L Left Dorsalis Pedis] Respiratory 16 17 19 Rate Blood Pressure 129/68 123/63 123/63 O2 Sat by Pulse 97 97 94 Oximetry 08/21/17 08/21/17 08/21/17 04:30 04:40 04:50 Temperature Pulse Rate 53 L 47 L 49 L Pulse Rate [ Left Dorsalis Pedis] Respiratory 15 14 15 Rate Blood Pressure 123/63 123/63 123/63 O2 Sat by Pulse 94 97 96 Oximetry 08/21/17 08/21/17 08/21/17 05:00 05:10 05:20 Temperature Pulse Rate 50 L 56 L 47 L Pulse Rate [ Left Dorsalis Pedis] Respiratory 15 14 15 Rate Blood Pressure 123/63 126/61 126/61 O2 Sat by Pulse 96 96 96 Oximetry 08/21/17 08/21/17 08/21/17 05:30 05:40 05:50 Temperature Pulse Rate 51 L 55 L 91 H Pulse Rate [ Left Dorsalis Pedis] Respiratory 14 15 15 Rate Blood Pressure 126/61 126/61 126/61 O2 Sat by Pulse 95 96 96 Oximetry 08/21/17 08/21/17 08/21/17 06:00 06:10 06:20 Temperature Pulse Rate 90 47 L 49 L Pulse Rate [ Left Dorsalis Pedis] Respiratory 16 16 16 Rate Blood Pressure 115/70 115/70 115/70 O2 Sat by Pulse 95 96 96 Oximetry 08/21/17 08/21/17 08/21/17 06:30 06:40 06:50 Temperature Pulse Rate 45 L 46 L 47 L Pulse Rate [ Left Dorsalis Pedis] Respiratory 15 15 14 Rate Blood Pressure 115/70 115/70 115/70 O2 Sat by Pulse 96 96 96 Oximetry 08/21/17 08/21/17 08/21/17 07:00 07:10 07:20 Temperature Pulse Rate 52 L 54 L 51 L Pulse Rate [ Left Dorsalis Pedis] Respiratory 17 19 15 Rate Blood Pressure 129/72 129/72 129/72 O2 Sat by Pulse 97 96 96 Oximetry 08/21/17 08/21/17 07:30 07:40 Temperature Pulse Rate 48 L 81 Pulse Rate [ Left Dorsalis Pedis] Respiratory 16 15 Rate Blood Pressure 115/70 115/70 O2 Sat by Pulse 97 96 Oximetry - Labs CBC & Chem 7: 08/20/17 20:39 08/21/17 03:00 Labs: Abnormal lab results 08/20/17 08/20/17 08/20/17 Range/Units 08:07 14:06 20:39 APTT 224.7 H* (24.2-36.6) Sec. Fibrinogen 91 L* 204 L (211-480) mg/dl Heparin Anti-Xa Level 0.10 L (0.3-0.7) U.I./ml Glucose (75-100) mg/dL 08/21/17 08/21/17 Range/Units 02:40 03:00 APTT (24.2-36.6) Sec. Fibrinogen (211-480) mg/dl Heparin Anti-Xa Level 0.77 H (0.3-0.7) U.I./ml Glucose 109 H (75-100) mg/dL
--- NOTE | 2017-08-21 10:56 | Progress Note ---
Assessment and Plan The patient is status post left lower extremity thrombolysis and stenting of the left external iliac and left common femoral vein. He required conversion to heparin secondary to nausea and vomiting however that has resolved. The patient will be given 10 mg of Eliquis this morning and his heparin drip will be stopped 2 hours afterwards. He will be discharged home today. He has been instructed to follow-up in the office on Wednesday to evaluate the patency of his recent intervention. The patient has expressed understanding and agrees with the plan. Subjective Date of service: 08/21/17 Principal diagnosis: Left ileofemoral DVT Interval history: Patient without any complaints. He has some nausea vomiting overnight however that has resolved. He states his left leg feels much better today. Objective - Constitutional Vitals: Vital Signs - 12hr 08/20/17 08/20/17 08/20/17 23:00 23:06 23:10 Temperature 97.8 F Pulse Rate 56 L 60 Pulse Rate [ Left Dorsalis Pedis] Respiratory 16 15 Rate Blood Pressure 128/60 122/57 O2 Sat by Pulse Oximetry 08/20/17 08/20/17 08/20/17 23:20 23:30 23:40 Temperature Pulse Rate 57 L 54 L 57 L Pulse Rate [ Left Dorsalis Pedis] Respiratory 16 15 15 Rate Blood Pressure 128/60 128/60 128/60 O2 Sat by Pulse Oximetry 08/20/17 08/21/17 08/21/17 23:50 00:00 00:04 Temperature Pulse Rate 58 L 62 62 Pulse Rate [ 58 L Left Dorsalis Pedis] Respiratory 15 16 15 Rate Blood Pressure 122/57 122/57 116/58 O2 Sat by Pulse Oximetry 08/21/17 08/21/17 08/21/17 00:10 00:20 00:30 Temperature Pulse Rate 55 L 58 L 56 L Pulse Rate [ Left Dorsalis Pedis] Respiratory 13 15 15 Rate Blood Pressure 116/58 116/58 116/58 O2 Sat by Pulse Oximetry 08/21/17 08/21/17 08/21/17 00:40 00:50 01:00 Temperature Pulse Rate 80 53 L 56 L Pulse Rate [ Left Dorsalis Pedis] Respiratory 16 17 19 Rate Blood Pressure 116/58 116/58 130/66 O2 Sat by Pulse Oximetry 08/21/17 08/21/17 08/21/17 01:10 01:20 01:30 Temperature Pulse Rate 52 L 56 L 56 L Pulse Rate [ Left Dorsalis Pedis] Respiratory 15 16 14 Rate Blood Pressure 130/66 130/66 130/66 O2 Sat by Pulse Oximetry 08/21/17 08/21/17 08/21/17 01:40 01:50 02:00 Temperature Pulse Rate 54 L 54 L 54 L Pulse Rate [ Left Dorsalis Pedis] Respiratory 15 16 14 Rate Blood Pressure 130/66 130/66 130/66 O2 Sat by Pulse 97 98 Oximetry 08/21/17 08/21/17 08/21/17 02:10 02:20 02:30 Temperature Pulse Rate 55 L 53 L 48 L Pulse Rate [ Left Dorsalis Pedis] Respiratory 20 18 18 Rate Blood Pressure 129/68 129/68 129/68 O2 Sat by Pulse 97 97 95 Oximetry 08/21/17 08/21/17 08/21/17 02:40 02:50 03:00 Temperature Pulse Rate 53 L 72 61 Pulse Rate [ Left Dorsalis Pedis] Respiratory 21 24 16 Rate Blood Pressure 129/68 129/68 129/68 O2 Sat by Pulse 98 86 97 Oximetry 08/21/17 08/21/17 08/21/17 03:10 03:20 03:30 Temperature 98.4 F Pulse Rate 50 L 67 53 L Pulse Rate [ Left Dorsalis Pedis] Respiratory 15 17 17 Rate Blood Pressure 129/68 129/68 129/68 O2 Sat by Pulse 95 96 96 Oximetry 08/21/17 08/21/17 08/21/17 03:40 03:50 04:00 Temperature Pulse Rate 52 L 56 L 60 Pulse Rate [ 54 L Left Dorsalis Pedis] Respiratory 16 18 16 Rate Blood Pressure 129/68 129/68 129/68 O2 Sat by Pulse 95 97 97 Oximetry 08/21/17 08/21/17 08/21/17 04:10 04:20 04:30 Temperature Pulse Rate 54 L 57 L 53 L Pulse Rate [ Left Dorsalis Pedis] Respiratory 17 19 15 Rate Blood Pressure 123/63 123/63 123/63 O2 Sat by Pulse 97 94 94 Oximetry 08/21/17 08/21/17 08/21/17 04:40 04:50 05:00 Temperature Pulse Rate 47 L 49 L 50 L Pulse Rate [ Left Dorsalis Pedis] Respiratory 14 15 15 Rate Blood Pressure 123/63 123/63 123/63 O2 Sat by Pulse 97 96 96 Oximetry 08/21/17 08/21/17 08/21/17 05:10 05:20 05:30 Temperature Pulse Rate 56 L 47 L 51 L Pulse Rate [ Left Dorsalis Pedis] Respiratory 14 15 14 Rate Blood Pressure 126/61 126/61 126/61 O2 Sat by Pulse 96 96 95 Oximetry 08/21/17 08/21/17 08/21/17 05:40 05:50 06:00 Temperature Pulse Rate 55 L 91 H 90 Pulse Rate [ Left Dorsalis Pedis] Respiratory 15 15 16 Rate Blood Pressure 126/61 126/61 115/70 O2 Sat by Pulse 96 96 95 Oximetry 08/21/17 08/21/17 08/21/17 06:10 06:20 06:30 Temperature Pulse Rate 47 L 49 L 45 L Pulse Rate [ Left Dorsalis Pedis] Respiratory 16 16 15 Rate Blood Pressure 115/70 115/70 115/70 O2 Sat by Pulse 96 96 96 Oximetry 08/21/17 08/21/17 08/21/17 06:40 06:50 07:00 Temperature Pulse Rate 46 L 47 L 52 L Pulse Rate [ Left Dorsalis Pedis] Respiratory 15 14 17 Rate Blood Pressure 115/70 115/70 129/72 O2 Sat by Pulse 96 96 97 Oximetry 08/21/17 08/21/17 08/21/17 07:10 07:20 07:30 Temperature Pulse Rate 54 L 51 L 48 L Pulse Rate [ Left Dorsalis Pedis] Respiratory 19 15 16 Rate Blood Pressure 129/72 129/72 115/70 O2 Sat by Pulse 96 96 97 Oximetry 08/21/17 08/21/17 08/21/17 07:40 07:50 08:00 Temperature 98.7 F Pulse Rate 81 60 51 L Pulse Rate [ Left Dorsalis Pedis] Respiratory 15 19 17 Rate Blood Pressure 115/70 115/70 131/69 O2 Sat by Pulse 96 96 98 Oximetry 08/21/17 08/21/17 08/21/17 08:10 08:20 08:30 Temperature Pulse Rate 52 L 55 L 53 L Pulse Rate [ Left Dorsalis Pedis] Respiratory 20 20 18 Rate Blood Pressure 131/69 131/69 131/69 O2 Sat by Pulse 98 98 98 Oximetry 08/21/17 08/21/17 08/21/17 08:40 08:50 09:00 Temperature Pulse Rate 51 L 55 L 71 Pulse Rate [ Left Dorsalis Pedis] Respiratory 18 19 22 Rate Blood Pressure 131/69 131/69 131/69 O2 Sat by Pulse 97 98 96 Oximetry General appearance: Present: no acute distress - Neck Neck: supple, other (no evidence of right neck hematoma) - Respiratory Respiratory effort: normal - Cardiovascular Rhythm: regular Extremities: pulses intact, normal temperature Extremity abnormal: edema (left lower extremity) - Gastrointestinal General gastrointestinal: Present: soft, non-tender, non-distended - Genitourinary Male genitourinary: normal - Labs CBC & Chem 7: 08/20/17 20:39 08/21/17 03:00 Labs: Abnormal lab results 08/20/17 08/20/17 08/21/17 Range/Units 14:06 20:39 02:40 APTT 224.7 H* (24.2-36.6) Sec. Fibrinogen 204 L (211-480) mg/dl Heparin Anti-Xa Level 0.77 H (0.3-0.7) U.I./ml Glucose (75-100) mg/dL 08/21/17 Range/Units 03:00 APTT (24.2-36.6) Sec. Fibrinogen (211-480) mg/dl Heparin Anti-Xa Level (0.3-0.7) U.I./ml Glucose 109 H (75-100) mg/dL
[2017-08-21] MEDS: ELIQUIS PO SCH (11:00)
[2017-08-21 11:21] VITALS: BP 105/56
== END 2017-08-21 11:25 | disposition home or self-care (01) | DRG 271 ==
LOC: CATHLABREC 10:17 → CC1 10:18
PROVIDERS: ADMIT Radiology Diagnostic Radiology; ATTEND Radiology Diagnostic Radiology
PROC: B5191ZA Fluoroscopy of Inferior Vena Cava using Low Osmolar Contrast, Guidance (ICD-10-PCS; principal; 2017-08-19)
PROC: 06CD3ZZ Extirpation of Matter from Left Common Iliac Vein, Percutaneous Approach (ICD-10-PCS; 2017-08-19)
PROC: 06C03ZZ Extirpation of Matter from Inferior Vena Cava, Percutaneous Approach (ICD-10-PCS; 2017-08-19)
PROC: 06CM3ZZ Extirpation of Matter from Right Femoral Vein, Percutaneous Approach (ICD-10-PCS; 2017-08-19)
PROC: 06CG3ZZ Extirpation of Matter from Left External Iliac Vein, Percutaneous Approach (ICD-10-PCS; 2017-08-19)
PROC: B51B1ZA Fluoroscopy of Right Lower Extremity Veins using Low Osmolar Contrast, Guidance (ICD-10-PCS; 2017-08-19)
PROC: 06HN33Z Insertion of Infusion Device into Left Femoral Vein, Percutaneous Approach (ICD-10-PCS; 2017-08-19)
PROC: 3E03317 Introduction of Other Thrombolytic into Peripheral Vein, Percutaneous Approach (ICD-10-PCS; 2017-08-19)
PROC: 06CD3ZZ Extirpation of Matter from Left Common Iliac Vein, Percutaneous Approach (ICD-10-PCS; 2017-08-20)
PROC: 06CN3ZZ Extirpation of Matter from Left Femoral Vein, Percutaneous Approach (ICD-10-PCS; 2017-08-20)
PROC: 06CG3ZZ Extirpation of Matter from Left External Iliac Vein, Percutaneous Approach (ICD-10-PCS; 2017-08-20)
PROC: 067G3ZZ Dilation of Left External Iliac Vein, Percutaneous Approach (ICD-10-PCS; 2017-08-20)
PROC: 067D3ZZ Dilation of Left Common Iliac Vein, Percutaneous Approach (ICD-10-PCS; 2017-08-20)
PROC: 067N3DZ Dilation of Left Femoral Vein with Intraluminal Device, Percutaneous Approach (ICD-10-PCS; 2017-08-20)
PROC: B5191ZA Fluoroscopy of Inferior Vena Cava using Low Osmolar Contrast, Guidance (ICD-10-PCS; 2017-08-20)
PROC: B51C1ZA Fluoroscopy of Left Lower Extremity Veins using Low Osmolar Contrast, Guidance (ICD-10-PCS; 2017-08-20)
PROC: 06PYX3Z Removal of Infusion Device from Lower Vein, External Approach (ICD-10-PCS; 2017-08-20)
DX: T82.868A Thrombosis due to vascular prosthetic devices, implants and grafts, initial encounter (principal); I87.319 Chronic venous hypertension (idiopathic) with ulcer of unspecified lower extremity; I87.1 Compression of vein; I82.509 Chronic embolism and thrombosis of unspecified deep veins of unspecified lower extremity; Y83.8 Other surgical procedures as the cause of abnormal reaction of the patient, or of later complication, without mention of misadventure at the time of the procedure; Y92.89 Other specified places as the place of occurrence of the external cause; I80.9 Phlebitis and thrombophlebitis of unspecified site; I89.1 Lymphangitis; Z79.899 Other long term (current) drug therapy; Z86.718 Personal history of other venous thrombosis and embolism
CPT/HCPCS: 36415; 37187; 37212; 37214; 37238; 37248; 37252; 51701; 80048; 85014; 85018; 85025; 85049; 85384; 85520; 85610; 85730; 86850; 86900; 86901; 96365; 96366; 96368; 96374; C1725; C1753; C1757; C1769; C1876; C1887; J0461; J0690; J1170; J1644; J2250; J2405; J2997; J3010; J7030; J7040; Q9967